=== PATIENT | female | born 2000 | race African-American/Black ===

== ENCOUNTER 2018-07-07 10:24 | Emergency (ER) | payer SELFPAY ==
[2018-07-07 10:29] VITALS: BP 142/103; PULSE 83; RESP 16; TEMP 36.4; O2SAT 97; BMI 27.4
--- NOTE | 2018-07-07 10:47 | ED.DCSUM_ITS ---
- ER Visit Summary Date of Service: 07/07/18 Chief Complaint: Visual hallucinations History of Present Illness: The patient is a 17 F who presents with visual hallucinations that began today. Patient states she was seeing a shadow that was shaped like a person. Patient states the shadow had a color but she is unable to describe the color. Patient states that she had a goes away when she touches her arm or clenches her fists. Patient denies any suicidal ideations or plan. Patient denies any chest pain or shortness of breath. Patient denies any nausea, vomiting, or diarrhea. Patient denies any recent illness. Physical Examination: Vital signs are stable. Patient is afebrile. Patient is in no acute distress. Oral mucosa is pink and moist. Neck is supple. Trachea is midline. There is no JVD noted. Heart was regular rate and rhythm. Lungs are clear and equal bilateral. Abdomen is soft. Bowel sounds are normal. There is no tenderness. There is no guarding noted. Skin is warm dry. Cranial nerves II through XII are intact. There are no focal motor or sensory deficits noted. Patient admits to visual hallucinations. Patient denies any suicidal or homicidal ideations. Patient has a flat affect and depressed mood. Patient appears to be somewhat withdrawn. The remaining physical exam is within normal limits. Test Results: CBC, basic metabolic profile, serum hCG, serum alcohol level, and urine tox screen were obtained and were all normal. Emergency Department Course and Treatment: Case was discussed with crisis. They do not feel patient needs inpatient treatment at this time. They will follow-up with the patient at 11 AM tomorrow. Patient is able to follow-up with this appointment. Patient understood and was agreeable with the plan. All questions were answered. Disposition: Discharge home Impression: 1. Visual hallucinations This note was generated with [employer] software. It may contain incorrect words, spelling, and punctuation that were not noted in review of the chart prior to signing ED Disposition - Plan for ED Patient: Disposition: Home or Assisted Living Diagnosis: Visual hallucination Instructions: ED Contract, No Harm
[2018-07-07 11:13] LABS: Absolute Lymphocyte Count 2.08 X10^3/ul (0.83-4.51); Absolute Neutrophil Count 4.1 X10^3/uL (2.0-7.7); Basophil# 0.02 X10^3/uL; Basophil% 0.3 % (0-1); Eosinophil# 0.06 X10^3/uL; Eosinophils% 0.9 % (0-5); Hematocrit 43.1 % (37-47); Hemoglobin 14.1 g/dl (12.0-15.0); Lymphocyte # 2.08 X10^3/ul (4.0); Mean Corp Hgb Conc 32.7 g/gl (32-36); Mean Corpuscular Hgb 29.7 pg (27.0-32.0); Mean Corpuscular Volume 90.9 fL (81-99); Mean Platelet Vol. 8.8 fl (6.2-12.0); Monocyte# 0.26 X10^3/uL; Neutrophil # 4.07 X10^3/uL (2.7-7.7); Neutrophil % 62.6 % (47-70); POSITIVE COUNT NO; POSITIVE DIFFERENTIAL NO; POSITIVE MORPHOLOGY NO; Platelet Count 363 K/mm3 (150-450); RBC Distribution Width CV 12.8 % (11.6-14.6); RBC Distribution Width SD 42.1 fl (35.1-43.9); Red Blood Count 4.74 M/mm3 (4.2-5.4); White Blood Count 6.5 K/mm3 (4.4-11.0)
[2018-07-07 11:17] LABS: Amphetamine Urine VISTA NEGATIVE (<1000 ng/mL); Barbiturate Urine VISTA NEGATIVE (< 200 ng/mL); Benzodiazepine Urine VISTA NEGATIVE (< 200 ng/mL); Cocaine Urine VISTA NEGATIVE (< 300 ng/mL); Ecstacy Urine VISTA NEGATIVE (< 500 ng/mL); Methadone Urine VISTA NEGATIVE (< 300 ng/mL); PCP Urine VISTA NEGATIVE (< 25 ng/mL); THC Urine VISTA NEGATIVE (< 50 ng/mL); Vista UDS pH Range 5
[2018-07-07 11:27] LABS: Anion Gap 6 (5-15); BUN 9 mg/dL (7-18); BUN/Creat Ratio 11.2 RATIO (10-20); Chloride 108 mmol/L (98-107); Creatinine, Serum 0.81 mg/dL (0.55-1.02); EST Glomerular Filtration Rate 97 mL/min (>60); Est Glom Filt Rate - Afr Amer 117 mL/min (>60); Estimated Creatinine Clearance 104.58 ml/min; Glucose 84 mg/dL (74-106); Potassium 3.9 mmol/L (3.5-5.1); Sodium Level 138 mmol/L (136-145)
[2018-07-07 11:36] LABS: Pregnancy, Serum, hCG Quali. NEGATIVE Negative (0-9 Nonpreg)
--- NOTE | 2018-07-07 12:01 | CM.ED ---
Social Work Assessment Reason for Consult: Mental Health, hallucinations Informant: Dr. Trammell Information obtained from: Medical record and pt. Pt is alert and oriented x3 and able to participate in assessment. Pt does not maintain eye contact, but speech is appropriate along with social etiquette. Living Arrangements: Pt lives on campus at the [employer] [employer] ([employer]) and this is her second year. 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 Transportation: Pt primarily walks, but reports to have friends that drive. Supports: Pt identifies her mentor Dr. Soares, and her friend - [place], as her primary supports. Family lives out of state in [place], [place] and and [place]. Pt declines for this insurance underwriter sales to contact her parents at this time. Stressors: States that a month ago her mother was in a car accident, but is ok now. Also states stress of her cousin being in and out of the hospital with an AIDS diagnosis, and the stress of not being able to be there. Emotional support provided. Mental Health Hx: Reports a hx of anxiety. Was recently started on Sertraline by the physician at [facility] 2 weeks ago. She does not go to counseling and has seen the counselor on campus in the past, but not since last semester. Educate the pt to the importance of counseling as well as area agencies that can assist. Pt is not suicidal. She reports visual hallucination of a shadow but states that it is not a shadow as there is not a person to cast the shadow, but it is shaped like a human. States it is a color she has never seen before and cannot describe. Denies that this shape talks to her or commands anything, but reports that it make her feel fearful, pain, and heaviness. Again denies that the shape tells her to harm herself. Denies suicidal ideation, a plan or intent. Denies a hx of cutting or other self harm and states she has scratched her arm with her fingernails to help center myself. Pt reports she has seen this shape in a dream, but does not recognize it outside of that. Denies any physical or sexual abuse or neglect in childhood. Reports her aunt was diagnosed with Bipolar and her Great Grandfather had schizophrenia. Denies that her parents or siblings have been diagnosed with any mental health diagnoses. Substance Use Hx: Pt denies substance use, even socially. ASSESSMENT: Discussed assessment with construction pit worker, Sue, and crisis Director, Andreina, who both feel that the pt does not meet criteria for admission to a psychiatric hospitalization. They recommend that she return to her provider to discuss alternative medication options or side effects of the one she is on. Explain that she is not linked with a psychiatrist and they are agreeable to get her linked with their agency. Appointment setup with [facility] on 07/08 at 11am with the pt's permission. Pt confirms that she can get transportation to the appointment. Discussed with physician and RN who are in agreement and pt to be discharged back to the [facility]. Intervention(s): Assessment completed and pt to discharge back to [place]. Crisis appointment made for 07/08 at 1100. Confirm pt has transportation. Information and education provided on [facility], but pt does not think it will suit her class/work schedule. Provided with crisis hotline and encouraged pt to contact the listed number if symptoms worsen. PLAN: Discharge back to [facility], and follow-up with crisis tomorrow at 1100. Anaya Lauren, FURNACE CONVERTER, ALVARO
[2018-07-07 12:10] VITALS: PULSE 64; RESP 18; O2SAT 99
== END 2018-07-07 12:11 | disposition home or self-care (01) ==
PROVIDERS: Emergency Provider Emergency Medicine; Family Provider Pediatrics; PCP Pediatrics
DX: R44.1 Visual hallucinations (principal)
CPT/HCPCS: 36415; 80048; 80307; 80320; 84703; 85025; 99283; G0480

== ENCOUNTER 2018-07-08 16:49 | Emergency (ER) | payer SELFPAY ==
[2018-07-07 10:29] VITALS: BMI 27.4
[2018-07-08 16:51] VITALS: BP 153/94; PULSE 96; RESP 18; TEMP 36.7; O2SAT 97; BMI 26.5
--- NOTE | 2018-07-08 17:14 | ED.DCSUM_ITS ---
- ER Visit Summary Date of Service: 07/08/18 Chief Complaint: Hallucinations History of Present Illness: The patient is a 17 F with visual hallucinations of a person shaped shadow since yesterday. Patient was seen in the ER yesterday. This morning she heard voices one time. She seen at crisis this afternoon for follow-up and told to come to the ED for admission arrangements. She denies suicidal ideation at this time. Physical Examination: Vital signs grossly unremarkable. Patient sitting upright in bed. She is in no acute distress. Head neck examination normal. Heart is regular rate and rhythm. Lungs sounds clear. Abdomen is soft nontender. Neuro exam reveals her to be alert and oriented. Psychiatric evaluation is positive for hallucinations, both visual and auditory. She is a flat affect with poor eye contact. She speaks in a quiet voice. She denies suicidal thoughts at this time. Test Results: CBC and chemistry studies significant only for glucose of 68. Patient was given p.o. diet and repeat blood sugar is 103. test negative. LFTs normal. Tox screen and EtOH negative. EKG is sinus at 100 with no acute ischemia. CT head is normal. Emergency Department Course and Treatment: Patient has been discussed with Roxanne from the counseling center. They have already faxed paperwork to get patient admitted and we are waiting to hear back. Treatment Plan: [] Disposition: Anticipated transfer Impression: Hallucinations This note was generated with [employer] dictation software. It may contain incorrect words, spelling, and punctuation that were not noted in review of the chart prior to signing ED Disposition - Plan for ED Patient: Referrals: Rene Norman MD [Primary Care Provider] -
--- NOTE | 2018-07-08 17:29 | CM.ED ---
SOCIAL WORK NOTE: DISCUSSED CASE WITH DR. MONSALVE. PT SEEN YESTERDAY IN ED BY TRAFFIC ADMINISTRATOR. PT SENT IN BY [facility] THIS DAY. CRISIS TO [facility] FOR PLACEMENT. KHURRAM NOBLES, CORPORATE DIRECTOR OF PHARMACY, [employer] STORAGE ARCHITECT.
[2018-07-08 17:45] LABS: Absolute Lymphocyte Count 3.48 X10^3/ul (0.83-4.51); Absolute Neutrophil Count 4.1 X10^3/uL (2.0-7.7); Basophil# 0.01 X10^3/uL; Basophil% 0.1 % (0-1); Eosinophil# 0.08 X10^3/uL; Hematocrit 42.8 % (37-47); Hemoglobin 14.2 g/dl (12.0-15.0); Lymphocyte # 3.48 X10^3/ul (4.0); Lymphocyte % 43.9 % (19-41); Mean Corp Hgb Conc 33.2 g/gl (32-36); Mean Corpuscular Hgb 30.1 pg (27.0-32.0); Mean Corpuscular Volume 90.9 fL (81-99); Mean Platelet Vol. 9.2 fl (6.2-12.0); Monocyte# 0.29 X10^3/uL; Monocyte% 3.7 % (0-10); Neutrophil # 4.05 X10^3/uL (2.7-7.7); Neutrophil % 51.2 % (47-70); Platelet Count 368 K/mm3 (150-450); RBC Distribution Width CV 12.7 % (11.6-14.6); RBC Distribution Width SD 42.2 fl (35.1-43.9); Red Blood Count 4.71 M/mm3 (4.2-5.4); White Blood Count 7.9 K/mm3 (4.4-11.0)
[2018-07-08 17:53] LABS: Anion Gap 9 (5-15); BUN 10 mg/dL (7-18); BUN/Creat Ratio 11.4 RATIO (10-20); Calcium,Total 9.1 mg/dL (8.5-10.1); Chloride 104 mmol/L (98-107); Creatinine, Serum 0.88 mg/dL (0.55-1.02); EST Glomerular Filtration Rate 88 mL/min (>60); Est Glom Filt Rate - Afr Amer 106 mL/min (>60); Estimated Creatinine Clearance 96.26 ml/min; Glucose 68 mg/dL (74-106); Potassium 3.9 mmol/L (3.5-5.1); Sodium Level 138 mmol/L (136-145)
[2018-07-08 17:55] LABS: POSITIVE COUNT NO; POSITIVE DIFFERENTIAL NO; POSITIVE MORPHOLOGY NO
[2018-07-08 18:10] LABS: Amphetamine Urine VISTA NEGATIVE (<1000 ng/mL); Barbiturate Urine VISTA NEGATIVE (< 200 ng/mL); Benzodiazepine Urine VISTA NEGATIVE (< 200 ng/mL); Cocaine Urine VISTA NEGATIVE (< 300 ng/mL); Ecstacy Urine VISTA NEGATIVE (< 500 ng/mL); Methadone Urine VISTA NEGATIVE (< 300 ng/mL); PCP Urine VISTA NEGATIVE (< 25 ng/mL); THC Urine VISTA NEGATIVE (< 50 ng/mL); Vista UDS pH Range 6
[2018-07-08 18:19] VITALS: RESP 15
--- NOTE | 2018-07-08 18:53 | ED.RN ---
CALLED CRISIS TO SEE THIS PT, CARMITA IS PLANT PROTECTION SUPERVISOR
--- NOTE | 2018-07-08 18:57 | ED.RN ---
CARMITA STATED THIS [place], SHE MUST WAIT FOR APPROVAL FROM THAT STATE FOR PLACEMENT.
[2018-07-08 19:07] VITALS: RESP 15
[2018-07-08 19:12] LABS: Pregnancy, Serum, hCG Quali. NEGATIVE Negative (0-9 Nonpreg)
--- NOTE | 2018-07-08 19:20 | ED.RN ---
information sent to counseling center at this time for placement
[2018-07-08 20:22] VITALS: BP 142/92; PULSE 104; RESP 15; O2SAT 99
[2018-07-08 20:26] LABS: Bedside Glucose 103 mg/dL (70-110)
--- NOTE | 2018-07-08 20:37 | EKG12_ITS ---
Test Reason : Blood Pressure : / mmHG Vent. Rate : 100 BPM Atrial Rate : 100 BPM P-R Int : 126 ms QRS Dur : 080 ms QT Int : 338 ms P-R-T Axes : 068 020 033 degrees QTc Int : 436 ms Normal sinus rhythm Possible Left atrial enlargement Borderline ECG Confirmed by CHANDRAKANT AKINS, RAD ([id number]), medical transcription editor ENRIQUE DE LEON ([id number]) on 07/15/2018 11:04:22 AM Referred By: ADRI Confirmed By:RAD STALLINGS MD
--- NOTE | 2018-07-08 20:37 | CT_ITS ---
STUDY: CT BRAIN WITHOUT CONTRAST REASON FOR EXAM: Female, 17 years old. Hallucinations. Seeing people. RADIATION DOSAGE (If Supplied By Facility): CTDIvol = ( 60.81 ) mGy, DLP = ( 998.67 ) mGycm TECHNIQUE: Transaxial CT imaging of the brain was performed without administration of intravenous contrast material. Individualized dose optimization techniques were used for this CT. COMPARISON: None. FINDINGS: Normal soft tissue structures. Normal calvarium. Normal size ventricles and extra-axial spaces for the patient's age. Normal white matter tracts of the cerebral hemispheres. Normal basal ganglia and thalami. Normal brainstem. Normal cerebellum. There is no intracranial hemorrhage. There are no findings of an acute ischemic infarction. Normal visualized paranasal sinuses. CT/Brain/Head without Contrast IMPRESSION: Normal unenhanced CT scan of the brain. Electronically Signed: Santy Ramos DO at 21:23 EST Tel [phone], Service support ,
[2018-07-08 20:59] LABS: AST(SGOT) 21 U/L (15-37); Alanine Aminotransfer ALT/SGPT 27 U/L (13-56); Albumin, Serum 4.2 g/dL (3.2-5.0); Alkaline Phosphatase 94 U/L (45-117); Bilirubin, Direct 0.19 mg/dL (0.00-0.30); Protein, Total 8.2 g/dL (6.4-8.2)
[2018-07-08 21:45] VITALS: BP 141/103; PULSE 91; RESP 17; O2SAT 97
[2018-07-08 23:04] VITALS: RESP 14
[2018-07-09] VITALS (12 sets, daily range): BP systolic 137–144; BP diastolic 98–103; PULSE 75–106; RESP 12–18; TEMP 36.3–36.6; O2SAT 97–100
--- NOTE | 2018-07-09 08:35 | ED.RN ---
TALKED TO MADAI AT [facility], STATES PT IS #4 ON LIST, AND SHOULD BE ABLE TO COME TODAY. PT HAS BEEN ACCEPTED, JUST WAITING ON A BED.
[2018-07-09] MEDS: Sertraline 50 MG Tablet PO (09:21)
--- NOTE | 2018-07-09 14:26 | NURSING ---
CALLED [facility]. ETA IS 1800
== END 2018-07-09 16:13 | disposition home or self-care (01) ==
LOC: ED 17:43
PROVIDERS: Emergency Provider Emergency Medicine; Family Provider Pediatrics; PCP Pediatrics
DX: R44.0 Auditory hallucinations (principal); R44.1 Visual hallucinations; F41.9 Anxiety disorder, unspecified; Z79.899 Other long term (current) drug therapy
CPT/HCPCS: 36415; 70450; 80048; 80076; 80307; 80320; 82962; 84703; 85025; 93005; 99285; G0480